=== PATIENT | male | born 1960 | race Caucasian/White ===

== ENCOUNTER 2021-09-01 19:19 | Emergency (ER) | payer OTHER, SELFPAY ==
--- NOTE | ~2021-09-01 | XR_ITS ---
EXAMINATION: X-RAY LEFT ANKLE X-RAY LEFT FOOT CLINICAL INFORMATION: Pain status post injury. COMPARISON: None TECHNIQUE: 2 images of the left ankle and 3 images of the left foot were obtained. FINDINGS: Left ankle: Soft tissue edema without evidence of acute fractures or malalignment. The ankle mortise is congruent. No unexpected radiopaque foreign bodies. Minimal vascular calcifications. Left foot: No acute fractures or malalignment. Joint spaces are preserved. No joint effusion. Small dorsal calcaneal spur and mild vascular calcifications. XR/XR ankle LT min 3V IMPRESSION: No acute fractures or malalignment.
--- NOTE | ~2021-09-01 | XR_ITS ---
EXAMINATION: X-RAY LEFT ANKLE X-RAY LEFT FOOT CLINICAL INFORMATION: Pain status post injury. COMPARISON: None TECHNIQUE: 2 images of the left ankle and 3 images of the left foot were obtained. FINDINGS: Left ankle: Soft tissue edema without evidence of acute fractures or malalignment. The ankle mortise is congruent. No unexpected radiopaque foreign bodies. Minimal vascular calcifications. Left foot: No acute fractures or malalignment. Joint spaces are preserved. No joint effusion. Small dorsal calcaneal spur and mild vascular calcifications. XR/XR foot LT min 3V IMPRESSION: No acute fractures or malalignment.
[2021-09-01 19:52] VITALS: BP 119/70; PULSE 94; RESP 16; TEMP 37.1; O2SAT 97; BMI 29.5
--- NOTE | 2021-09-01 20:25 | ED_ITS ---
HPI - Extremity Injury (Lower) General Chief Complaint: Extremity Injury, Lower Stated Complaint: ankle inj Time Seen by Provider: 09/01/21 20:25 Source: patient Mode of arrival: ambulatory History of Present Illness HPI Narrative: 61-year-old male with a past medical history of diabetes presenting to the ED complaining of left ankle/foot injury s/p twisting on stair while helping a friend move yesterday. Reports difficulty ambulating yesterday, ambulating with cane today secondary to pain/swelling. Denies injury to other area, numbness, tingling, weakness. MD complaint: ankle injury and foot injury Related Data Previous Rx's Medication Instructions Recorded acetaminophen 500 mg tablet 500 mg PO Q6H PRN #20 tab 09/01/21 (Tylenol Extra Strength) cephalexin 500 mg capsule 500 mg PO QID 7 Days #28 cap 09/01/21 naproxen 500 mg tablet 500 mg PO BID PRN 10 Days #20 tab 09/01/21 Allergies Allergy/AdvReac Type Severity Reaction Status Date / Time No Known Allergies Allergy Verified 09/01/21 19:54 Review of Systems Review of Systems: Constitutional: No Fever, No Chills ENT/Mouth: No Ear Pain, No Nasal Congestion, No sore throat= Cardiovascular: No Chest Pain, No SOB Respiratory: No Cough Gastrointestinal: No Nausea, No Vomiting, No Abdominal pain Genitourinary:No Dysuria, No Urinary Frequency Musculoskeletal: + joint pain, No Myalgias, + Joint Swelling Skin: No Skin Lesions, No rash Neuro: No Weakness, No Numbness, No Paresthesias Yes all other systems are reviewed and are negative Neurologic: Denies Sensory deficit (Neuro) [facility] Past Medical History Attestation statement: The following information was validated with the patient. Social History Social History Advance Directives: No Advance Directives Information Provided: Yes Physical Exam Vital Signs: Vital Signs: Last Vital Signs Temp 98.7 F 09/01/21 19:52 Pulse 94 09/01/21 19:52 Resp 16 09/01/21 19:52 BP 119/70 09/01/21 19:52 Pulse Ox 97 09/01/21 19:52 Body Mass Index 29.5 Const: General: cooperative, healthy appearing and no acute distress Orientation/consciousness: patient oriented x3 Limitations: no limitations HENMT: Head: Yes normal to inspection Ears: hearing grossly normal bilaterally General nose exam: Normal external nose present Face and sinus: Yes normal facial exam Eyes: General: appearance normal, both eyes and all related structures EOM: EOMs intact bilaterally Neck: Neck: Yes normal visual inspection and Yes no meningeal signs Resp: Effort & Inspection: normal respiratory effort and no respiratory distress Cardio: Rate: regular rate Peripheral pulses: dorsalis pedis present Skin: Rashes: no rashes Wounds: no wounds Neuro: General: patient oriented x3, tone normal and no meningeal signs Sensory Exam: No Sensory deficit (Neuro) Extrem: Other: Left foot and ankle with noted swelling greater to lateral aspect with overlying erythema and warmth. Tender to palpation. Decreased ROM to ankle secondary to pain. Neurovascularly intact. Sensation intact to light touch Course Course Course Narrative: XR ankle LT min 3V / XR foot LT min 3V IMPRESSION: No acute fractures or malalignment. >> patient placed in Aircast and supplied with crutches MDM - Extremity Injury (Lower) MDM Narrative Medical decision making narrative: 61-year-old male with a past medical history of diabetes presenting to the ED complaining of left ankle/foot injury s/p twisting on stair while helping a friend move yesterday. On exam vital signs stable, NAD, physical exam as above, concern for fracture versus dislocation, concern for overlying cellulitis. Low concern for septic joint/arthritis Plan: X-rays Medical Records Attestation: I reviewed the patient's medical records. Lab Data Attestation: I reviewed the patient's lab results. Discharge Plan Discharge Clinical Impression: Ankle sprain and strain, Cellulitis Patient Disposition: Home, Self-Care Instructions: Ankle Sprain (ED), R.I.C.E. Treatment (ED) Additional Instructions: You have a sprain ankle, x-ray does not show a fracture or dislocation It also appears to have an early cellulitis to your foot, Keflex as an antibiotic, please take as prescribed Wear Aircast at home as needed for comfort/debility Use crutches as needed Bear weight as tolerated Ice and elevate her foot. Naproxen as anti-inflammatory, take with food Addition take Tylenol. Please follow-up with her doctor Prescriptions: New acetaminophen [Tylenol Extra Strength] 500 mg tablet 500 mg PO Q6H PRN (Reason: pain or fever) Qty: 20 RF: 0 cephalexin 500 mg capsule 500 mg PO QID 7 Days Qty: 28 RF: 0 naproxen 500 mg tablet 500 mg PO BID PRN (Reason: pain) 10 Days Qty: 20 RF: 0 Referrals: Patricio Wong NP [Primary Care Provider] - 2 days
--- NOTE | 2021-09-01 21:07 | PC.NURSE ---
AIR CASTE WITH CRUTCHES INSTRUCTION GIVEN.
== END 2021-09-01 21:08 | disposition home or self-care (01) ==
PROVIDERS: Emergency Provider Emergency Medicine; PCP Nurse Practitioner Family
DX: S93.402A Sprain of unspecified ligament of left ankle, initial encounter (principal); S96.912A Strain of unspecified muscle and tendon at ankle and foot level, left foot, initial encounter; L03.116 Cellulitis of left lower limb; E11.9 Type 2 diabetes mellitus without complications; X50.1XXA Overexertion from prolonged static or awkward postures, initial encounter; Y93.89 Activity, other specified; Y92.9 Unspecified place or not applicable; Y99.9 Unspecified external cause status
CPT/HCPCS: 73610; 73630; 99283

== ENCOUNTER 2021-12-03 16:18 | Emergency (ER) | payer OTHER, SELFPAY ==
[2021-12-03 16:34] VITALS: BP 109/75; PULSE 98; RESP 18; TEMP 36.6; O2SAT 97; BMI 29.5
--- NOTE | 2021-12-03 18:51 | ED_ITS ---
HPI - Neck Pain/Injury General Chief Complaint: Neck Pain/Injury Stated Complaint: sharp pain left arm Time Seen by Provider: 12/03/21 18:51 Source: patient Mode of arrival: ambulatory Limitations: no limitations History of Present Illness HPI Narrative: Patient is a 61 year old male presenting to the emergency department today with left-sided neck pain and arm pain. Patient states that he has had this pain for days, and had a full workup done at [facility]. Patient states they told him there is not a cardiac event, and they referred him to a medical research associate/orthopedic provider. Patient states he was given a steroid and muscle relaxer but he does not feel like that is helping the pain enough. Patient denies any dizziness, lightheadedness, abdominal pain, nausea, vomiting, fever, chills, blurry vision, double vision, loss of vision, chest pain, difficulty breathing, shortness of breath, back pain, night sweats, pain with urination, increased urinary frequency, increased urinary urgency, blood in his urine or stool, syncope or a near syncopal episode, recent trauma or falls, bowel incontinence, bladder incontinence, bowel retention, bladder retention, or any other complaints at this time. Patient describes this pain as starting at the left side of his neck and going all the way down his left arm. MD complaint: neck pain Onset (ago): day(s) Place: home Radiation: left lateral, left shoulder and left upper extremity Severity: mild Severity scale (1-10): 3 Quality: burning Duration: intermittent Relieving factors: none Exacerbating factors: none Associated symptoms: none Related Data Previous Rx's Medication Instructions Recorded acetaminophen 500 mg tablet 500 mg PO Q6H PRN #20 tab 09/01/21 (Tylenol Extra Strength) cephalexin 500 mg capsule 500 mg PO QID 7 Days #28 cap 09/01/21 naproxen 500 mg tablet 500 mg PO BID PRN 10 Days #20 tab 09/01/21 Allergies Allergy/AdvReac Type Severity Reaction Status Date / Time No Known Allergies Allergy Verified 12/03/21 16:34 Review of Systems Verdana 4l Constitutional: Verdana 4d Verdana 4d Constitutional: Verdana 4d Reports no additional constitutional complaints, Denies chills, Denies fever(s) and Denies night sweats Verdana 4l Eyes: Verdana 4d Verdana 4d Eyes: Verdana 4d Reports no additional eye complaints, Denies blurry vision, Denies change in vision, Denies diplopia, Denies eye discharge, Denies loss of vision and Denies eye pain Verdana 4l ENT: Verdana 4d Denies dizziness and Reports neck pain (Left-sided) Verdana 4l Cardiovascular: Verdana 4d Verdana 4d Cardiovascular: Verdana 4d Reports no additional cardiovascular complaints, Denies chest pain, Denies lightheadedness, Denies Loss of Consciousness and Denies dyspnea Verdana 4l Respiratory: Verdana 4d Verdana 4d Respiratory: Verdana 4d Reports no additional respiratory complaints and Denies dyspnea Verdana 4l Gastrointestinal: Verdana 4d Verdana 4d Gastrointestinal: Verdana 4d Reports no additional gastrointestinal complaints, Denies abdominal pain, Denies melena, Denies hematochezia, Denies change in bowel habits and Denies change in stool character Verdana 4l Genitourinary: Verdana 4d Verdana 4d Genitourinary: Verdana 4d Reports no additional male genitourinary complaints, Denies hematuria, Denies oliguria, Denies difficulty urinating, Denies dysuria, Denies urinary frequency, Denies urinary hesitancy, Denies urinary incontinenceincontinence and Denies urinary urgency Musculoskeletal: Musculoskeletal: Reports no additional musculoskeletal complaints, Reports neck pain (Left-sided), Denies numbness, Reports radiating pain into limb (Left arm) and Denies tingling Neurologic: Denies dizziness, Denies loss of vision, Denies numbness and Denies tingling Psychiatric: Psychiatric: Reports no additional psychiatric complaints Endocrine: Endocrine: Reports no additional endocrine complaints Hematologic/Lymphatic: Hematologic/Lymphatic: Reports no additional hematologic/lymphatic complaints Allergic/Immunologic: Allergic/Immunologic: Reports no additional allergic/immunologic complaints PMFSH Past Medical History Attestation statement: The following information was validated with the patient. Source: old records reviewed Social History Social History Advance Directives: No Advance Directives Information Provided: No Physical Exam Verdana 4l Vital Signs: Verdana 4d Verdana 4d Vital Signs: Verdana 4d Verdana 4Bd Last Vital Signs Verdana 4d Livestock Haulier New 4d Livestock Haulier New 4d Temp 98 F 12/03/21 16:34 Livestock Haulier New 4d Pulse 98 12/03/21 16:34 Livestock Haulier New 4d Resp 18 12/03/21 16:34 BP 109/75 12/03/21 16:34 Pulse Ox 97 12/03/21 16:34 BMI result Body Mass Index 29.5 Const: General: cooperative, no acute distress, alert and awake Nutritional Appearance: well nourished Orientation/consciousness: patient oriented x3 Limitations: no limitations HENMT: Head: Yes normal to inspection and Yes atraumatic Ears: hearing grossly normal bilaterally and external ears normal General nose exam: Normal external nose present, no nasal discharge noted and no epistaxis Face and sinus: Yes normal facial exam, No abrasion and No laceration Mouth: Normal oral and palatal mucosa present, no drooling and no muffled voice Eyes: General: appearance normal, both eyes and all related structures Periorbital: periorbital findings normal Eyelids: Yes eyelids normal Conjunctivae: conjunctivae normal Pupils: Equal, round and reactive pupils present EOM: EOMs intact bilaterally Neck: Neck: Yes normal visual inspection, Yes full ROM and Yes no lymphadenopathy Chest: Chest palpation & inspection: normal inspection of the chest Resp: Effort & Inspection: normal respiratory effort and able to speak in complete sentences Auscultation: clear to auscultation bilaterally Cardio: Rate: regular rate Rhythm: regular rhythm GI: Inspection: Yes normal to inspection Neuro: General: patient oriented x3 and moves all extremities Cranial nerves: Yes Equal, round and reactive pupils present Cognition (Neuro): normal cognition Motor exam (neuro): 5/5 motor strength present throughout Sensory Exam: Normal double simultaneous stimulation for sensation Coordination: [id number] test normal Extrem: General: Yes normal to inspection, Yes full ROM and Yes capillary refill normal Psych: Appearance: grossly normal Mental Status: mental status grossly normal A ffect: normal affect Attitude: cooperative Thought process: Normal thought process present Thought content: Normal thought content present Insight: Good insight present (Psych) NIH Stroke Scale Internal: Initial- Upon Arrival Time: 18:51 Level of Consciousness: Alert Level of Consciousness Questions: Answers both questions correctly Level of Consciousness Commands: Performs both tasks correctly Best Gaze: Normal Visual: No visual loss Facial Palsy: Normal Motor Arm (Right): No drift Motor Arm (Left): No drift Motor Leg (Right): No drift Motor Leg (Left): No drift Limb Ataxia: Absent Sensory: Normal Best Language: No aphasia Dysarthia: Normal Extinction and Inattention: No abnormality Score: 0 MDM - Neck Pain/Injury MDM Narrative Medical decision making narrative: Patient is a 61 year old male presenting to the emergency department today with left-sided neck pain. Patient's physical exam was unremarkable. The description of the patient's pain, previous negative workup, and physical exam, are all consistent with left-sided cervical root radiculopathy. I explained to the patient that additional pain medication, is not warranted at this time. I explained to the patient that he would receive Toradol, IM, before discharge today. I stressed the importance of patient following up with Orthopedics, 1st thing tomorrow. I explained my physical exam findings to the patient. I answered all questions asked by the patient. I stressed the importance of the patient taking his medication as prescribed. I stressed the importance of the patient following up with his primary care provider. I stressed the importance of the patient returning to the emergency department immediately if his symptoms were to worsen or if he were to develop any dizziness, shortness of breath, difficulty breathing, chest pain, blurry vision, loss of vision, nausea, vomiting, abdominal pain, fever, chills, back pain, or any other complaints. Patient verbalized agreement and understanding with this treatment plan and discharge. Differential Diagnosis Differential diagnosis: Likely disc disorder of cervical region, cervical radiculopathy and strain of neck muscle Discharge Plan Discharge Clinical Impression: Cervical radicular pain, Strain of neck muscle Patient Disposition: Home, Self-Care Instructions: Neck Pain (ED) Prescriptions: No Action acetaminophen [Tylenol Extra Strength] 500 mg tablet 500 mg PO Q6H PRN (Reason: pain or fever) Qty: 20 0RF cephalexin 500 mg capsule 500 mg PO QID 7 Days Qty: 28 0RF naproxen 500 mg tablet 500 mg PO BID PRN (Reason: pain) 10 Days Qty: 20 0RF Referrals: Shasta Porras MD [Physician] - 2 days Patricio Wong NP [Primary Care Provider] - 2 days Interventions: ED Discharge Assessment Last Done: 12/03/21 19:52 Discharge Date/Time: 12/03/21 19:53 Print Language: Georgian
[2021-12-03] MEDS: Ketorolac Tromethamine 30 MG/ML VIAL IM (19:41)
== END 2021-12-03 19:53 | disposition home or self-care (01) ==
PROVIDERS: Emergency Provider Internal Medicine; PCP Nurse Practitioner Family
DX: S16.1XXA Strain of muscle, fascia and tendon at neck level, initial encounter (principal); M54.2 Cervicalgia; R29.700 NIHSS score 0; M79.602 Pain in left arm; X58.XXXA Exposure to other specified factors, initial encounter; Y93.9 Activity, unspecified; Y92.9 Unspecified place or not applicable; Y99.9 Unspecified external cause status; Z79.899 Other long term (current) drug therapy
CPT/HCPCS: 96372; 99284; J1885

== ENCOUNTER 2023-08-22 13:27 | Emergency (ER) | payer MEDICAID, SELFPAY ==
[2023-08-22 15:18] VITALS: BP 133/102; PULSE 107; RESP 17; TEMP 36.4; O2SAT 99
--- NOTE | 2023-08-22 15:19 | ED.NECK ---
HPI - Neck Pain/Injury General Chief Complaint: Extremity Problem Stated Complaint: neck pain down l arm Time Seen by Provider: 08/22/23 16:04 Source: patient Mode of arrival: ambulatory History of Present Illness HPI Narrative: This is a 63-year-old male who presents with pain across his left shoulder that starts at the base at the left base of his neck and radiates down the lateral aspect of his left upper extremity without dizziness/headache/chest pain/palpitations or shortness of breath. Patient states that he was seen for this same issue at [facility] recently and was placed on a course of prednisone that he states adversely affected him as he became very angry and also said that he began experiencing worsening acid reflux. Patient states he has completed the prednisone couple of days ago. Related Data Previous Rx's Medication Instructions Recorded acetaminophen 500 mg tablet 500 mg PO Q6H PRN pain or fever 09/01/21 (Tylenol Extra Strength) #20 tabs cephalexin 500 mg capsule 500 mg PO QID 7 days #28 caps 09/01/21 ketorolac 10 mg tablet 10 mg PO Q6H PRN pain 5 days #20 08/22/23 tabs Allergies Allergy/AdvReac Type Severity Reaction Status Date / Time No Known Allergies Allergy Verified 12/03/21 16:34 Review of Systems Review of Systems: Pertinent positives and negatives as stated in HPI [facility] Past Medical History Source: nursing notes reviewed Social History Social History Alcohol intake: never Smoked in Last 30 Days: No Use of substances other than those prescribed or required for medical reasons: No Advance Directives: No Advance Directives Information Provided: No Physical Exam Vital Signs: Vital Signs: Last Vital Signs Temp 96.1 F L 08/22/23 19:13 Pulse 95 08/22/23 19:13 Resp 18 08/22/23 19:13 BP 131/82 08/22/23 19:13 Pulse Ox 97 08/22/23 19:13 O2 Del Method Room Air 08/22/23 19:13 BMI result Body Mass Index 30.0 VITAL SIGNS: Reviewed. GENERAL: Well developed, well nourished, in no acute distress. HEAD: Normocephalic/atraumatic EYES: PERRLA, EOMI EARS: Ext canals without abnormality, TMs non-bulging and non-erythematous NOSE: Nares patent bilateral OROPHARYNX: no oral lesions noted, posterior pharynx clear and non-erythematous without noted tonsillar enlargement/erythema/exudates NECK: Supple, no adenopathy, no midline cervical spine tenderness to palpation or step-offs, however on palpation of left cervical paraspinal there is noted muscle firmness and tenderness that persists across the left shoulder and deltoid into the triceps region LUNGS: Normal breath sounds. No adventitious sounds or accessory muscle use. SpO2<97> CARDIOVASCULAR: Regular rate and rhythm without noted murmurs ABDOMEN: Soft, non-tender, non-distended with bowel sounds. MUSCULOSKELETAL: No tenderness, deformities, or effusions noted on gross inspection. EXTREMITIES: No cyanosis, clubbing or edema. SKIN: Inspection of the skin reveals no rashes NEUROLOGIC: Alert and oriented x 4. Strength and sensation to light touch were grossly intact x 4. Course Course Course Narrative: RME: 63-year-old male w/ past history HTN c/o L neck pain radiating down LUE described as electricity x 10 days. denies DUGGAN, CP, injury/fall. Admits went to [facility] last Saturday was given a shot and Prednisone & Flexeril w/o relief HTNsive 133/102 (took BP meds today) No midline cervical spinous ttp, +R paraspinal and tapezius muscle ttp EKG ordered Full HPI, ROS and PE to be performed by primary ED provider. Medical Decision Making Medical Decision Making MDM Narrative: 63-year-old male with history and clinical presentation, DDX: Muscle spasm, cervical radiculopathy, low clinical suspicion for any pneumonia/pneumothorax/ACS. The noted affect on patient's glucose and blood pressure is likely residual due to recent course of prednisone. I reviewed all investigations and hematologic indices negative for leukocytosis or left shift, no anemia or thrombocytopenia. Coagulation studies without elevation. Chemistry indices demonstrate a pseudohyponatremia secondary to elevated glucose level which is secondary to recent course of steroids. There is no evidence DKA or HHS. There is no demonstration of MARISELA and no electrolyte or liver enzyme abnormalities. High sensitivity troponin is undetectable. COVID-19 testing is negative. Provided patient with combination analgesics as well as lidocaine patch. He still has remaining cyclobenzaprine from his visit to [facility] and he was encouraged to take 1 of these each evening prior to bed. In addition, he was strongly encouraged to follow-up with his primary care doctor and obtain a referral for physical therapy. Differential Diagnosis Differential Diagnoses: The differential diagnosis associated with the presentation includes Please see the discussion above Admission/Observation Consideration of admission/observation: Escalation of care including admission/observation considered Please see the discussion above Lab Data MDM Lab Attestation statement: I reviewed the patient's lab results. Please see the discussion above 08/22/23 15:36 08/22/23 15:36 Labs: Lab Results 08/22/23 08/22/23 Range/Units 15:36 19:12 WBC 10.2 (4.8-10.8) X10*3/uL RBC 5.06 (4.60-5.80) X10*6/uL Hgb 16.3 (14.0-18.0) g/dl Hct 46.8 (42.0-52.0) % MCV 92.5 (80.0-98.0) fL MCH 32.2 (27.0-33.0) pg MCHC 34.8 (31.0-36.0) g/dl RDW 11.7 (11.0-16.0) % Plt Count 298 (160-400) X10*3/uL MPV 9.8 (9.4-12.4) fL Immature Gran % (Auto) 0.5 H (0.0-0.4) % Neut % (Auto) 53.6 (45-73) % Lymph % (Auto) 33.9 (20-40) % [place] % (Auto) 9.9 (2-11) % Eos % (Auto) 1.5 (0-4) % Baso % (Auto) 0.6 (0-2) % Lymph # (Auto) 3.5 (1.2-4.9) X10*3/uL [place] # (Auto) 1.0 (0.1-1.2) X10*3/uL Eos # (Auto) 0.2 (0.0-0.4) X10*3/uL Baso # (Auto) 0.1 (0.0-0.2) X10*3/uL Abs Immat Gran (auto) 0.05 H (0.00-0.03) X10*3/uL Absolute Neuts (auto) 5.5 (2.0-8.3) x10*3/uL Absolute Nucleated RBC 0.000 (0.0-0.012) X10*3/uL Nucleated RBC % (auto) 0.0 (0.0-0.2) /100WBC PT 10.1 L (11.1-13.3) SEC INR 0.8 L (0.9-1.1) Sodium 133 L (135-145) mmol/L Potassium 4.3 (3.3-5.1) mmol/L Chloride 95 L (96-108) mmol/L Carbon Dioxide 24 (22-29) mmol/L Anion Gap 18 (12-20) BUN 25 H (9-16) mg/dL Creatinine 1.27 (0.5-1.4) mg/dL Estim Creat Clear Calc 66.7 Estimated GFR 57 Random Glucose 403 H* (60-115) mg/dL Calcium 9.9 (8.4-10.2) mg/dL Total Bilirubin 0.4 (0.0-1.0) mg/dL AST 11 (5-37) U/L ALT 21 (0-40) U/L Alkaline Phosphatase 64 (39-117) U/L Troponin I High Sens < 2.7 (<3.5-35.0) ng/L Total Protein 7.9 (6.5-8.0) g/dL Albumin 4.4 (3.5-5.0) g/dL Beta-Hydroxybutyrate 0.12 (0.02-0.27) mmol/L COVID-19 (MONIQUE) Negative (Negative) COVID-19 Clin Com See Note Independent Interpretation I performed an independent interpretation of an: EKG Interpretation: Normal sinus rhythm, HR-98, no STEMI, [place]/QRS/QTC is within normal limits. Chronic Conditions Patient?s care impacted by: Diabetes and Hypertension Discharge Plan Discharge Clinical Impression: Cervical radiculopathy, Muscle spasm Patient Disposition: Home, Self-Care Instructions: Cervical Radiculopathy (ED), Muscle Spasm (ED) Additional Instructions: 1. Resume all home medications as prescribed. 2. Tylenol 1000 mg, orally, every 6 hours as needed for pain control. Do not exceed 4000 mg within 24 hours. 3. Lidocaine patch, apply to area of maximal tenderness as directed on the outside packaging. 4. Follow-up with your primary care doctor and get a referral for physical therapy. Return to the ER for any worsening symptoms. Prescriptions: New ketorolac 10 mg tablet 10 mg PO Q6H PRN (Reason: pain) 5 Days Qty: 20 0RF Rx Instructions: Pt received Toradol in the ER Discontinued naproxen 500 mg tablet 500 mg PO BID PRN (Reason: pain) 10 Days Qty: 20 0RF No Action acetaminophen [Tylenol Extra Strength] 500 mg tablet 500 mg PO Q6H PRN (Reason: pain or fever) Qty: 20 0RF cephalexin 500 mg capsule 500 mg PO QID 7 Days Qty: 28 0RF Referrals: Patricio Wong NP [Primary Care Provider] -
--- NOTE | 2023-08-22 15:20 | ECG_ITS ---
Test Reason : neck pain Blood Pressure : / mmHG Vent. Rate : 098 BPM Atrial Rate : 098 BPM P-R Int : 134 ms QRS Dur : 086 ms QT Int : 326 ms P-R-T Axes : 058 059 035 degrees QTc Int : 416 ms Normal sinus rhythm Nonspecific ST abnormality Inferior leads Lateral leads Abnormal ECG No previous ECGs available Referred By: Donna Mott Electronically Signed By:CLARKE AVILA MD
[2023-08-22 15:41] LABS: MANUAL DIFF FLAG NO
[2023-08-22 15:43] LABS: Basophils Absolute Auto 0.1 X10*3/uL (0.0-0.2); Basophils Percent Auto 0.6 % (0-2); Eosinophils Absolute Auto 0.2 X10*3/uL (0.0-0.4); Eosinophils Percent Auto 1.5 % (0-4); Hematocrit 46.8 % (42.0-52.0); Hemoglobin 16.3 g/dl (14.0-18.0); Imm Gran Abs Auto 0.05 X10*3/uL (0.00-0.03); Imm Gran Pct Auto 0.5 % (0.0-0.4); Lymphocytes Absolute Auto 3.5 X10*3/uL (1.2-4.9); Lymphocytes Percent Auto 33.9 % (20-40); Mean Corpuscular HGB Conc 34.8 g/dl (31.0-36.0); Mean Corpuscular Hemoglobin 32.2 pg (27.0-33.0); Mean Corpuscular Volume 92.5 fL (80.0-98.0); Mean Platelet Volume 9.8 fL (9.4-12.4); Monocytes Percent Auto 9.9 % (2-11); Neutrophils Absolute Auto 5.5 x10*3/uL (2.0-8.3); Neutrophils Percent Auto 53.6 % (45-73); Platelet Count 298 X10*3/uL (160-400); Red Blood Count 5.06 X10*6/uL (4.60-5.80); Red Cell Distribution Width 11.7 % (11.0-16.0); White Blood Count 10.2 X10*3/uL (4.8-10.8)
[2023-08-22 15:59] LABS: Alanine Aminotransferase 21 U/L (0-40); Albumin Level 4.4 g/dL (3.5-5.0); Alkaline Phosphatase 64 U/L (39-117); Anion Gap 18 (12-20); Aspartate Amino Transferase 11 U/L (5-37); Bilirubin Total 0.4 mg/dL (0.0-1.0); Blood Urea Nitrogen 25 mg/dL (9-16); Calcium 9.9 mg/dL (8.4-10.2); Carbon Dioxide 24 mmol/L (22-29); Chloride 95 mmol/L (96-108); Creatinine Clr Calc Pharmacy 66.7; Estimated Glomerular Filt Rate 57; Glucose Random 403 mg/dL (60-115); Potassium 4.3 mmol/L (3.3-5.1); Sodium 133 mmol/L (135-145); Total Protein 7.9 g/dL (6.5-8.0)
[2023-08-22 16:01] LABS: INTERNATIONAL NORM RATIO 0.8 (0.9-1.1); Prothrombin Time 10.1 SEC (11.1-13.3)
[2023-08-22 16:03] LABS: Troponin-I High Sensitivity < 2.7 ng/L (<3.5-35.0)
[2023-08-22 16:35] LABS: Beta-Hydroxybutyrate 0.12 mmol/L (0.02-0.27)
[2023-08-22 19:13] VITALS: BP 131/82; PULSE 95; RESP 18; TEMP 35.6; O2SAT 97
[2023-08-22 19:33] LABS: COVID-19 Test Negative (Negative); IDNOW Serial# 08D9AD1C
[2023-08-22] MEDS: Lidocaine 4 % Patch ADH..PATCH 1 PATCH TRANSDERMA (22:13)
[2023-08-22] MEDS: Ketorolac Tromethamine 15 MG/ML VIAL IM (22:13)
[2023-08-22] MEDS: Acetaminophen 325 MG TABLET 975 MG PO (22:13)
[2023-08-22 22:22] LABS: Glucose, Whole Blood 234 mg/dL (60-115)
[2023-08-22 23:09] VITALS: BP 142/84; PULSE 84; RESP 16; O2SAT 97
== END 2023-08-22 23:10 | disposition home or self-care (01) ==
PROVIDERS: Emergency Provider Student in an Organized Health Care Education/Training Program; PCP Nurse Practitioner Family
DX: M54.12 Radiculopathy, cervical region (principal); M62.838 Other muscle spasm; Z11.52 Encounter for screening for COVID-19
CPT/HCPCS: 36415; 80053; 82010; 82947; 84484; 85025; 85610; 87635; 93005; 96372; 99284; J1885

== ENCOUNTER 2025-02-25 09:56 | Emergency (ER) | payer MEDICAID, SELFPAY ==
[2025-02-25 10:02] VITALS: BP 131/73; PULSE 87; RESP 16; TEMP 36.9; BMI 28.1
--- NOTE | 2025-02-25 10:06 | ED_ITS ---
HPI - General Adult General Chief complaint: Abdominal Pain Stated complaint: Lower Abd Pain Time Seen by Provider: 02/25/25 10:06 History of Present Illness ED Provider: Antonio FRAZIER narrative: The patient is a 64-year-old male who has had pain in his right lower abdomen for about a week. He says this all started after he was pushing a heavy object. He says that the pain is worse when he moves in certain ways or changes position in certain ways. He has had no nausea, vomiting, or diarrhea. No urinary difficulty. He says that a few days ago he went to the emergency room at [facility] and had a CAT scan that did not show anything and he was told it was a muscle strain. He is having ongoing pain and came to the emergency room today. The patient has a long-term history of HIV. He also has type 2 diabetes. Related Data Previous Rx's ?Medication ?Instructions ?Recorded acetaminophen 500 mg tablet 500 mg PO Q6H PRN pain or fever 09/01/21 (Tylenol Extra Strength) #20 tabs cephalexin 500 mg capsule 500 mg PO QID 7 days #28 caps 09/01/21 ketorolac 10 mg tablet 10 mg PO Q6H PRN pain 5 days #20 08/22/23 tabs acetaminophen 500 mg capsule 1,000 mg (2 x 500 mg) PO Q8H PRN 02/25/25 fever or pain #14 caps cyclobenzaprine 10 mg tablet 10 mg PO TID PRN muscle spasm #14 02/25/25 tabs ibuprofen 400 mg tablet 400 mg PO Q6H PRN pain #14 tabs 02/25/25 Allergies Allergy/AdvReac Type Severity Reaction Status Date / Time No Known Allergies Allergy Verified 02/25/25 10:03 Review of Systems 2 Review of Systems: Yes all other systems are reviewed and are negative [facility] Social History Social History Alcohol intake: never Smoked in Last 30 Days: No Use of substances other than those prescribed or required for medical reasons: No Advance Directives: No Advance Directives Information Provided: Yes Do you have a plan to hurt others: No Plan Physical Exam ED Vital Signs: Vital Signs - 24 hr 02/25/25 10:02 02/25/25 13:30 Temperature 98.4 F 98.0 F Pulse Rate 87 88 Respiratory Rate 16 16 Blood Pressure 131/73 128/88 Pulse Oximetry 98 Oxygen Delivery Method Room Air Room Air BMI result Body Mass Index 28.1 Const Other: The patient is awake and alert. He looks remarkably healthy given his long- term history of HIV. He does not appear in acute distress but does seem to have some discomfort when he moves around or changes position. HENMT Other: Face is symmetrical. Mucous membranes moist. Eyes General: appearance normal, both eyes and all related structures Neck Neck: Yes full ROM and Yes no lymphadenopathy Resp Effort & Inspection: normal respiratory effort Auscultation: clear to auscultation bilaterally Cardio Rate: regular rate Rhythm: regular rhythm Heart sounds: S1 normal heart sound present and S2 normal heart sound present GI Other: The patient's abdomen seems soft. He seems to have an area of focal tenderness in the right lower abdomen just above the inguinal canal. This tenderness seems quite focal and quite superficial. At McBurney's point the patient does not seem to have any tenderness. Other: The patient has unremarkable external genitalia. No testicular tenderness. No scrotal fullness. Invagination of the inguinal canal did not reveal any definite sign of hernia. Skin Other: Skin is dry and unremarkable. Neuro Other: The patient is awake and alert with normal mental status. Cranial nerves 2-12 are intact. He moves extremities normally and appropriately. He seems grossly neurologically intact. Extrem Other: No peripheral edema. Medical Decision Making Medical Decision Making MDM Narrative: The patient is a 64-year-old male who is here for complaints of pain in the region of his right lower abdomen and groin. The patient describes experiencing this pain after pushing a heavy object. I believe he has some kind of strain type injury in his right groin or lower abdominal wall muscles. He has already been seen at [facility] for this pain and apparently had a negative CT scan of the abdomen and pelvis. He has no significant gastrointestinal symptoms of nausea, vomiting, or change in bowel habits. He has had no fever, sweats, chills. He seems to have abdominal wall tenderness in the right lower abdominal wall. I do not appreciate any abdominal wall hernia. Additionally I do not appreciate any definite findings of an inguinal hernia. Patient has unremarkable labs including a normal white count differential. My suspicion for an intra-abdominal process is low. Additionally does not have any findings of a small-bowel obstruction. My overall conclusion is that the patient probably has some kind of a groin muscle strain or lower abdominal wall muscle strain. He requested pain medications. He will be given prescriptions for acetaminophen, ibuprofen, and cyclobenzaprine. I am recommending that he follow up with the general surgery office for a 2nd opinion about the possible presence of an inguinal hernia or abdominal wall hernia. He was given the contact information for [facility] [place].He should also follow-up with his PCP. Lab Data 02/25/25 10:39 02/25/25 10:39 Labs: Lab Results 02/25/25 02/25/25 Range/Units 10:39 12:22 WBC 6.9 (4.8-10.8) X10*3/uL RBC 4.68 (4.60-5.80) X10*6/uL Hgb 15.4 (14.0-18.0) g/dl Hct 43.7 (42.0-52.0) % MCV 93.4 (80.0-98.0) fL MCH 32.9 (27.0-33.0) pg MCHC 35.2 (31.0-36.0) g/dl RDW 12.4 (11.0-16.0) % Plt Count 232 (160-400) X10*3/uL MPV 9.8 (9.4-12.4) fL Immature Gran % (Auto) 0.1 (0.0-0.4) % Neut % (Auto) 49.7 (45-73) % Lymph % (Auto) 38.6 (20-40) % [place] % (Auto) 8.4 (2-11) % Eos % (Auto) 2.9 (0-4) % Baso % (Auto) 0.3 (0-2) % Lymph # (Auto) 2.7 (1.2-4.9) X10*3/uL [place] # (Auto) 0.6 (0.1-1.2) X10*3/uL Eos # (Auto) 0.2 (0.0-0.4) X10*3/uL Baso # (Auto) 0.0 (0.0-0.2) X10*3/uL Abs Immat Gran (auto) 0.01 (0.00-0.03) X10*3/uL Absolute Neuts (auto) 3.4 (2.0-8.3) x10*3/uL Absolute Nucleated RBC 0.000 (0.0-0.012) X10*3/uL Nucleated RBC % (auto) 0.0 (0.0-0.2) /100WBC Sodium 136 (135-145) mmol/L Potassium 4.5 (3.3-5.1) mmol/L Chloride 106 (96-108) mmol/L Carbon Dioxide 22 (22-29) mmol/L Anion Gap 13 (12-20) BUN 23 H (9-16) mg/dL Creatinine 0.99 (0.5-1.4) mg/dL Estim Creat Clear Calc 81.9 Estimated GFR > 60 Random Glucose 175 H (60-115) mg/dL Calcium 9.4 (8.4-10.2) mg/dL Total Bilirubin 0.2 (0.0-1.0) mg/dL Direct Bilirubin < 0.2 (0.0-0.5) mg/dL AST 36 (5-37) U/L ALT 29 (0-40) U/L Alkaline Phosphatase 58 (39-117) U/L C-Reactive Protein 0.11 (< or = 0.50) mg/dL Total Protein 7.6 (6.5-8.0) g/dL Albumin 4.3 (3.5-5.0) g/dL Lipase 60 (8-78) U/L Urine Color Yellow Urine Appearance Clear Urine pH 5.5 (5.0-9.0) Ur Specific [place] 1.025 (1.005-1.025) Urine Protein Negative (Neg-Trace) mg/dL Urine Glucose (UA) >=1000 H (Negative) mg/dL Urine Ketones Negative (Negative) mg/dL Urine Blood Negative (Negative) Urine Nitrite Negative (Negative) Ur Leukocyte Esterase Negative (Negative) Urine RBC 0-2 (0-2) /HPF Urine WBC 0-5 (0-5) /HPF Ur Squamous Epith Cells 0-2 (0-2) /HPF Urine Bacteria None Seen (None Seen) Hyaline Casts 0-2 (0-2) /LPF Discharge Plan Discharge Clinical Impression: Right groin pain Patient Disposition: Home, Self-Care Additional Instructions: Your blood testing today and your urine testing are very unremarkable and reassuring. On your physical exam today I do not feel any definite findings of a hernia. Given your physical exam findings, your normal blood testing, and the fact that the CAT scan and done at [facility] a few days ago did not show any concerning process I suspect that this is all a muscle strain type injury. Nevertheless I think it would be good for you to be seen at the General surgery office to make sure they do not think you have a hernia also. Also plan on following up with your regular doctor. In the meantime I have sent prescriptions for pain control. I have sent prescriptions for acetaminophen, ibuprofen, and the muscle relaxant cyclobenzaprine. You may use these as needed as prescribed. No driving on cyclobenzaprine. It can make you drowsy. Return to the emergency room if any vomiting or fever or other new and concerning symptoms. Prescriptions: New cyclobenzaprine 10 mg tablet 10 mg PO TID PRN (Reason: muscle spasm) Qty: 14 0RF ibuprofen 400 mg tablet 400 mg PO Q6H PRN (Reason: pain) Qty: 14 0RF acetaminophen 500 mg capsule 1,000 mg PO Q8H PRN (Reason: fever or pain) Qty: 14 0RF No Action acetaminophen [Tylenol Extra Strength] 500 mg tablet 500 mg PO Q6H PRN (Reason: pain or fever) Qty: 20 0RF cephalexin 500 mg capsule 500 mg PO QID 7 Days Qty: 28 0RF ketorolac 10 mg tablet 10 mg PO Q6H PRN (Reason: pain) 5 Days Qty: 20 0RF Rx Instructions: Pt received Toradol in the ER Referrals: [facility] [place] [facility] [Provider Group] (Right groin pain, ? hernia) Tha Thornton MD [Primary Care Provider] - (right groin pain, suspect muscle strain) Interventions: ED Discharge Assessment Last Done: 02/25/25 13:30 Discharge Date/Time: 02/25/25 13:31 Print Language: Malay
[2025-02-25 10:43] LABS: MANUAL DIFF FLAG NO
[2025-02-25 10:49] LABS: Basophils Percent Auto 0.3 % (0-2); Eosinophils Absolute Auto 0.2 X10*3/uL (0.0-0.4); Eosinophils Percent Auto 2.9 % (0-4); Hematocrit 43.7 % (42.0-52.0); Hemoglobin 15.4 g/dl (14.0-18.0); Imm Gran Abs Auto 0.01 X10*3/uL (0.00-0.03); Imm Gran Pct Auto 0.1 % (0.0-0.4); Lymphocytes Absolute Auto 2.7 X10*3/uL (1.2-4.9); Lymphocytes Percent Auto 38.6 % (20-40); Mean Corpuscular HGB Conc 35.2 g/dl (31.0-36.0); Mean Corpuscular Hemoglobin 32.9 pg (27.0-33.0); Mean Corpuscular Volume 93.4 fL (80.0-98.0); Mean Platelet Volume 9.8 fL (9.4-12.4); Monocytes Absolute Auto 0.6 X10*3/uL (0.1-1.2); Monocytes Percent Auto 8.4 % (2-11); Neutrophils Absolute Auto 3.4 x10*3/uL (2.0-8.3); Neutrophils Percent Auto 49.7 % (45-73); Platelet Count 232 X10*3/uL (160-400); Red Blood Count 4.68 X10*6/uL (4.60-5.80); Red Cell Distribution Width 12.4 % (11.0-16.0); White Blood Count 6.9 X10*3/uL (4.8-10.8)
--- NOTE | 2025-02-25 10:50 | PC.NURSE ---
patient a&ox3, iv inserted labs drawn, pt c/o 06/13 rt groin pain, pt awaiting provider, call cleaning within reach, plan of care ongoing
[2025-02-25 11:00] LABS: Alanine Aminotransferase 29 U/L (0-40); Albumin Level 4.3 g/dL (3.5-5.0); Alkaline Phosphatase 58 U/L (39-117); Anion Gap 13 (12-20); Aspartate Amino Transferase 36 U/L (5-37); Bilirubin Direct < 0.2 mg/dL (0.0-0.5); Bilirubin Total 0.2 mg/dL (0.0-1.0); Blood Urea Nitrogen 23 mg/dL (9-16); C Reactive Protein 0.11 mg/dL (< or = 0.50); Calcium 9.4 mg/dL (8.4-10.2); Carbon Dioxide 22 mmol/L (22-29); Chloride 106 mmol/L (96-108); Creatinine Clr Calc Pharmacy 81.9; Estimated Glomerular Filt Rate > 60; Glucose Random 175 mg/dL (60-115); Lipase 60 U/L (8-78); Potassium 4.5 mmol/L (3.3-5.1); Sodium 136 mmol/L (135-145); Total Protein 7.6 g/dL (6.5-8.0)
--- OUTSIDE RECORDS SUMMARY | 2025-02-25 12:20 | XMS_ITS | Clinical Summary ---
Author Organization [address] [facility] Address [address] [place] [address] Phone Care Team Providers Care Billboard Poster Name Role Phone Judith, Tylor PATSY Primary Care Provider [phone]- [phone] Allergies No known active allergies Encounters Date Type Department Care Team Description 02/22/2025 11:08 PM EDT - 02/23/2025 5:27 AM EDT Emergency [facility] Emergency [address] [place] [address] Setphan Turner MD Right lower quadrant abdominal pain (Primary Dx) Discharge Disposition: Home or Self Care from Last 3 Months Immunizations Name Administration Dates Next Due Moderna SARS-CoV-2 COVID-19, mRNA, LNP-S, preservative free 10/24/2021,03/06/2021,02/04/2021 Medical History Medical History Date Comments Hypertension DX:Hypertension High cholesterol DX:High cholest ángel Diabetes mellitus (CMS/HCC V 24, CMS/HCC V28) DX:Diabetes mellitus (HCC) HIV (human immunodeficiency virus infection) (CMS/HCC V24, CMS/HCC V28) DX:HIV (human im munodeficiency virus infection) ([facility]) Social History Tobacco Use Types Packs/Day Years Used Date Smoking Tobacco: Never Smokeless Tobacco: Never Alcohol Use Standard Drinks/Week Comments Not Currently 0 (1 standard drink = 0.6 oz pur e alcohol) Sex and Gender Information Value Date Recorded Sex Assigned at Not on file Legal Sex Male 10:13 AM EST Gender Identity Not on file Sexual Orientation Not on file Obstetrics History Last Filed Vital Signs Vital Sign Reading Time Taken Comments Blood Pressure 109/89 02/23/2025 4:03 AM EDT Pulse 66 02/23/2025 4:03 AM EDT Temperature 36.8 ??C (98.2 ??F) 02/23/2025 4:03 AM ED T Respiratory Rate 16 02/23/2025 4:03 AM EDT Oxygen Saturation 95% 02/23/2025 4:03 AM EDT Inhaled Oxygen Concentration - - Weight 86.2 kg (190 lb) 02/22/2025 4:05 PM EDT Height 175.3 cm (5' 9 ) 02/22/2025 4:05 PM EDT Body Mass Index 28.06 02/22/2025 4:05 PM EDT Plan of Treatment Health Maintenance Due Date Last Done Comments Meningococcal ACWY Vaccine (1 - Risk 2-dose series) 1962 Diabetes: Annual Foot Exam 1970 Diabetes: Annual Retina Eye Exam 1970 MMR Vaccines (1 of 2 - Risk 2-dose series) 1978 Hepatitis A Vaccines (1 of 2 - Risk 2-dose series) 1979 Hepatitis B Vaccines (1 of 3 - Risk 3-dose series) 2020 Colorectal Cancer Screening: Colonoscopy 10/02/2022 Social Influencers of Health Screening 10/02/2022 Diabetes: Annual Urine Albumin-Creatinine Ratio (uACR) 09/22/2024 05/24/2022, 06/06/2020, 10/31/2018 COVID-19 Vaccine (7 - Moderna risk season) 2025 10/07/2024, 11/20/2023, 09/25/2022, Additional history exists Diabetes: Blood Sugar Control Test (HGBA1C) 05/13/2025 11/13/2024, 05/05/2024 Depression Screening 01/26/2026 01/26/2025 Diabetes: Annual GFR (Glomerular Filtration Rate) 02/22/2026 02/22/2025, 01/25/2025, 11/13/2024, Additional history exists Hypertension/CHF/CAD Annual BMP Blood Test 02/22/2026 02/22/2025, 01/25/2025, 11/13/2024, Additional history exists DTaP,Tdap,and Td Vaccines (2 - Td or Tdap) 07/16/2027 07/16/2017 Cholesterol Screening (Lipid Panel) 11/13/2029 11/13/2024, 11/13/2024, 05/05/2024, Additional history exists Zoster Vaccines Completed 03/01/2023, 08/17/2022 Pneumococcal Vaccine: 50+ Years Completed 11/20/2023, 09/25/2022 Pneumococcal Vaccine: Pediatrics (0 to 5 Years) and At-Risk Patients (6 to 64 Years) Completed 11/20/2023, 09/25/2022 Influenza Vaccine Completed 07/28/2024, , 08/03/2022, Additional history exists RSV Immunization Adult Patients Completed 10/07/2024 Hepatitis C Screening Completed 01/25/2025, 024 HIB Vaccines Aged Out No longer eligi ble based on patient's age to complete this topic HPV Vaccines Aged Out No longer eligi ble based on patient's age to complete this topic IPV Vaccines Aged Out No longer eligi ble based on patient's age to complete this topic Meningococcal B Vaccine Aged Out No l onger eligible based on patient's age to complete this topic RSV Immunization Patients Under 20 months Aged Out No longer eligible based on patient's age to complete this topic Varicella Vaccines Aged Out No longer eligible based on patient's age to complete this topic Procedures Procedure Name Priority Date/Time Associated Diagnosis Comments CT ABDOMEN PELVIS W CONTRAST STAT 02/23/2025 12:20 AM EDT EARLY URINE CULTURE TUBE STAT 02/23/20 4:38 PM EDT URINALYSIS WITH REFLEX MICROSCOPIC AND CULTURE STAT 02/22/2025 4:38 PM EDT URINALYSIS WITH REFLEX MICROSCOPIC AND CULTURE STAT 02/22/2025 4:38 PM EDT CBC WITH AUTO DIFFERENTIAL STAT 02/22/2025 4:25 PM EDT COMPREHENSIVE METABOLIC PANEL STAT 02/22/2025 4:25 PM EDT CBC AND DIFFERENTIAL STAT 02/22/2025 4:25 PM EDT CHLAMYDIA TRACHOMATIS AND NEISSERIA GONORRHOEAE PCR Routine 01/25/2025 11:02 AM EDT Human immunodeficiency virus (HIV) disease ([facility] V24, [facility] V28) AST, ALT, BILIRUBIN ELR STATE REPORTABLES Routine 01/25/2025 10:55 AM EDT Human immunodeficiency virus (HIV) disease ([facility] V24, [facility] V28) CBC WITH AUTO DIFFERENTIAL Routine 01/25/2025 10:55 AM EDT Human immunodeficiency virus (HIV) disease ([facility] V24, [facility] V28) LYMPHOCYTE T-CELL PANEL Routine 01/26/20 10:55 AM EDT Human immunodeficiency virus (HIV) disease ([facility] V24, [facility] V28) TREPONEMA PALLIDUM ANTIBODY WITH REFLEX TO RPR AND PARTICLE AGGLUTINATION Routine 01/25/2025 10:55 AM EDT Human immunodeficiency virus (HIV) disease ([facility] V24, [facility] V28) HIV 1 MOLECULAR STUDY QUANTITATIVE Routine 01/25/2025 10:55 AM EDT Human immunodeficiency virus (HIV) disease ([facility] V24, [facility] V28) HEPATITIS C ANTIBODY Routine 01/25/2025 10:55 AM EDT Human immunodeficiency virus (HIV) disease [place] [place], [facility] V28) CREATININE, SERUM Routine 01/25/2025 10:55 AM EDT Human immunodeficiency virus (HIV) disease ([facility] [place], [facility] V28) ASPARTATE AMINOTRANSFERASE Routine 01/25/2025 10:55 AM EDT Human immunodeficiency virus (HIV) disease ([facility] V24, [facility] V28) ALANINE AMINOTRANSFERASE Routine 01/25/2025 10:55 AM EDT Human immunodeficiency virus (HIV) disease (CMS/HCC V24, CMS/HCC V28) ELECTROLYTE PANEL Routine 01/25/2025 10:55 AM EDT Human immunodeficiency virus (HIV) disease (CMS/HCC V24, CMS/HCC V28) CBC AND DIFFERENTIAL Routine 01/25/2025 10:55 AM EDT Human immunodeficiency virus (HIV) disease (CMS/HCC V24, CMS/HCC V28) from Last 3 Months Results * CT Abdomen Pelvis w Contrast (02/23/2025 12:20 AM EDT) Anatomical Region Laterality Modality Body Computed Tomogra phy 02/23/2025 1:24 AM EDT Impressions 02/23/2025 1:24 AM EDT 1. No acute disease. No evidence of a bowel obstruction or free air. No pericolonic inflammation. No evidence of appendicitis. 2. Fatty liver is suspected. 3. Additional findings are detailed above. This document has been electronically signed by: Jose Calderón M.D. on 02/23/2025 01:24:03 Narrative 02/23/2025 1:24 AM EDT INDICATION: RLQ abdominal pain, appendicitis suspected (Age >= 14y) CT ABDOMEN AND PELVIS WITH CONTRAST COMPARISON: None. FINDINGS: The appendix is visualized, and there is no evidence of acute appendicitis. Moderate amount of stool is noted within portions of the colon. No pericolonic inflammation. No evidence of a bowel obstruction or free air. Predominantly dependent atelectatic/ground-glass changes are noted in the lower lungs. Fatty liver is suspected. No focal liver lesion. Gallbladder is unremarkable. No visible stone. Stomach is significantly underdistended which precludes accurate assessment. Pancreas is unremarkable. No CT evidence of acute pancreatitis. Collateral vessels are noted in the abdomen. Spleen and adrenal glands are unremarkable. Both kidneys are unremarkable. No hydronephrosis or obstructing stone. Urinary bladder is unremarkable. Prostate gland measures 5.1 x 4.4 cm on axial image 153. There is a small left fat containing inguinal hernia, and a small to moderate fat containing right inguinal hernia. There is a tiny fat containing umbilical hernia. No evidence of a bowel containing hernia. Remote mild compression deformities are noted involving the T12 and L1 vertebral body levels. Multilevel endplate degenerative changes are noted within the visualized spine. There are [id number] degenerative changes in the bilateral hips. Procedure Note Jose Calderón MD - 02/23/2025 INDICATION: RLQ abdominal pain, appendicitis suspected (Age >= 14y) [address] ABDOMEN AND PELVIS WITH CONTRAST COMPARISON: None. FINDINGS: The appendix is visualized, and there is no evidence of acute appendicitis. Moderate amount of stool is noted within portions of the colon. No pericolonic inflammation. No evidence of a bowel obstructionor free air. Predominantly dependent atelectatic/ground-glass changes are noted inthe lower lungs. Fatty liver is suspected. No focal liver lesion.Gallbladder is unremarkable. No visible stone. Stomach is significantlyunderdistended which precludes accurate assessment. Pancreas is unremarkable. No CT evidence of acute pancreatitis. Collateral vessels are noted in the abdomen. Spleen and adrenal glands are unremarkable. Both kidneys are unremarkable. No hydronephrosis or obstructing stone. Urinary bladder is unremarkable. Prostate gland measures 5.1 x 4.4 cm on axial image 153. There is a small left fat containing inguinal hernia, and a small to moderate fat containing right inguinal hernia. There is a tiny fat containing umbilical hernia. No evidence of a bowel containing hernia. Remote mild compression deformities are noted involving the T12 and L1 vertebral body levels. Multilevel endplate degenerative changes arenoted within the visualized spine. There are [id number] degenerative changes in the bilateral hips. IMPRESSION: 1. No acute disease. No evidence of a bowel obstruction or free air. No pericolonic inflammation. No evidence of appendicitis. 2. Fatty liver is suspected. 3. Additional findings are detailed above. This document has been electronically signed by: Jose Calderón M.D. on 02/23/2025 01:24:03 [facility] Barbara Turner MD IM CT PROCEDURES Final Result * (ABNORMAL) Urinalysis with reflex microscopic and culture (02/22/2025 4:38 PM EDT) Specific [place] Urine 1.013 1.003 - 1.030 LAB URINALYSIS - AUTOMATED METHOD 02/22/2025 5:14 PM EDT [facility] pH, Urine 6.0 5.0 - 8.0 pH LAB URINALYSIS - AUTOMATED METHOD 02/22/2025 5:14 PM EDT [facility] Leukocytes, Urine Negative Negative LAB URINALYSIS - AUTOMATED METHOD 02/22/2025 5:14 PM [facility] Nitrite, Urine Negative Negative LAB URINALYSIS - AUTOMATED METHOD 02/22/2025 5:14 PM EDT [facility] Protein, Urine Negative <=Trace mg/dL LAB URINALYSIS - AUTOMATED METHOD 02/22/2025 5:14 PM [facility] Glucose, Urine >=1000(A) Negative mg/dL LAB URINALYSIS - AUTOMATED METHOD 02/22/2025 5:14 PM [facility] Ketones, Urine Negative Negative mg/dL LAB URINALYSIS - AUTOMATED METHOD 02/22/2025 5:14 PM [facility] Urobilinogen , Urine 0.2 0.2 - 1.0 mg/dL LAB URINALYSIS - AUTOMATED METHOD 02/22/2025 5:14 PM [facility] Bilirubin, Urine Negative Negative LAB URINALYSIS - AUTOMATED METHOD 02/22/2025 5:14 PM [facility] Blood, Urine Negative Negative LAB URINALYSIS - AUTOMATED METHOD 02/22/2025 5:14 PM [facility] Urine Urine specimen obtained by clean catch procedure / Unknown Non-blood Collection / Unknown 02/22/2025 4:38 PM EDT 02/22/2025 4:49 PM EDT us Stephan Turner MD LAB URINE ORDERABLES Final Resu lt [facility] [address] [place] [address], * Early urine culture tube (02/22/2025 4:38 PM EDT) [facility] Extra Tube Hold for add-ons. 02/22/2025 6:02 PM EDT [facility] Comment:Auto resulted. Urine Urine specimen obtained by clean catch procedure / Unknown Non-blood Collection / Unknown 02/22/2025 4:38 PM EDT 02/22/2025 4:49 PM EDT Stephan Turner MD LAB URINE ORDERABLES Final Resu lt [facility] [address] [place] [address], [place] [phone] * CBC auto differential (02/22/2025 4:25 PM EDT) Only the most recent of2 resultswithin the time period is included. [facility] WBC 8.8 4.8 - 10.8 K/mcL LAB HEMETOLOGY METHOD 02/22/2025 4:55 PM EDT [facility] RBC 4.70 4.50 - 5.50 M/mcL LAB HEMETOLOGY METHOD 02/22/2025 4:55 PM EDT [facility] Hemoglobin 15.0 13.5 - 17.5 g/dL LAB HEMETOLOGY METHOD 02/22/2025 4:55 PM EDT [facility] Hematocrit 44.4 42.0 - 54.0 % LAB HEMETOLOGY METHOD 02/22/2025 4:55 PM EDT [facility] MCV 94.1 79.0 - 98.0 FL LAB HEMETOLOGY METHOD 02/22/2025 4:55 PM EDT [facility] MCH 31.8 27.0 - 32.0 pcg LAB HEMETOLOGY METHOD 02/22/2025 4:55 PM EDT [facility] MCHC 33.8 32.0 - 37.0 g/dL LAB HEMETOLOGY METHOD 02/22/2025 4:55 PM EDT [facility] RDW 12.2 11.0 - 15.0 % LAB HEMETOLOGY METHOD 02/22/2025 4:55 PM EDT [facility] Platelets 256 130 - 400 K/mcL LAB HEMETOLOGY METHOD 02/22/2025 4:55 PM EDT [facility] MPV 9.8 7.0 - 11.0 FL LAB HEMETOLOGY METHOD 02/22/2025 4:55 PM EDT [facility] NRBC 0.0 <1.0 % LAB HEMETOLOGY METHOD 02/22/2025 4:55 PM EDT [facility] NRBC Absolute 0.00 <0.10 K/mcL LAB HEMETOLOGY METHOD 02/22/2025 4:55 PM [facility] Neutrophils Relative 48.8 % LAB HEMETOLOGY METHOD 02/22/2025 4:55 PM EDT [facility] Lymphocytes Relative 41.3 % LAB HEMETOLOGY METHOD [facility] Monocytes Relative 7.7 % LAB HEMETOLOGY METHOD 02/22/2025 4:55 PM [facility] Eosinophils Relative 1.8 % LAB HEMETOLOGY METHOD 02/22/2025 4:55 PM EDT [facility] Basophils Relative 0.3 % LAB HEMETOLOGY METHOD 02/22[facility]2025 4:55 PM [facility] Immature Granulocytes Relative 0.1 % LAB HEMETOLOGY METHOD 02/22/2025 4:55 PM EDT [facility] Neutrophils Absolute 4.29 1.50 - 7.00 K/mcL LAB HEMETOLOGY METHOD 02/22/2025 4:55 PM EDT [facility] Lymphocytes Absolute 3.63 1.00 - 5.00 K/mcL LAB HEMETOLOGY METHOD 02/22/2025 4:55 PM EDT [facility] Monocytes Absolute 0.68 0.20 - 1.00 K/[facility] LAB HEMETOLOGY METHOD 02/22/2025 4:55 PM EDT [facility] Eosinophils Absolute 0.16 0.00 - 0.50 K/[facility] LAB HEMETOLOGY METHOD 02/22/2025 4:55 PM EDT [facility] Basophils Absolute 0.03 0.00 - 0.20 K/[facility] LAB HEMETOLOGY METHOD 02/22/2025 4:55 PM EDT [facility] Immature Granulocytes Absolute 0.01 0.00 - 0.03 K/[facility] LAB HEMETOLOGY METHOD 02/22/2025 4:55 PM EDT [facility] Blood Venous blood specimen / Unknown 02/22/2025 4:25 PM EDT 02/22/2025 4:49 PM EDT Stephan Turner MD LAB BLOOD ORDERABLES Final Resu lt [facility] [address] [place] [address], * (ABNORMAL) Comprehensive metabolic panel (02/22/2025 4:25 PM EDT) Sodium 135 133 - 145 mmol/L LAB CHEMISTRY METHOD 02/22/2025 5:34 PM EDT [facility] Potassium 4.0 3.5 - 5.5 mmol/L LAB CHEMISTRY METHOD 02/22/2025 5:34 PM [facility] Chloride 103 96 - 110 mmol/L LAB CHEMISTRY METHOD 02/22/2025 5:34 PM EDT [facility] CO2 26 21 - 32 mmol/L LAB CHEMISTRY METHOD 02/22/2025 5:34 PM EDT [facility] Anion Gap 6 3 - 11 LAB CHEMISTRY METHOD 02/22/2025 5:34 PM [facility] Glucose 129(H) 70 - 100 mg/dL LAB CHEMISTRY METHOD 02/22/2025 5:34 PM [facility] BUN 17 5 - 25 mg/dL LAB CHEMISTRY METHOD 02/22/2025 5:34 PM [facility] Creatinine 1.16 0.70 - 1.30 mg/dL LAB CHEMISTRY METHOD 02/22/2025 5:34 PM [facility] eGFR 70 >=60 mL/min/1. 73m2 LAB CHEMISTRY METHOD 02/22/2025 5:34 PM [facility] Comment:Calculation based on the??Chronic Kidney Disease Epidemiology Collaboration (CKD-EPI) equation refit??without adjustment for race. BUN/Creatinine Ratio 14.7 LAB CHEMISTRY METHOD 02/22/2025 5:34 PM [facility] Calcium 9.6 8.5 - 10.5 mg/dL LAB CHEMISTRY METHOD 02/22/2025 5:34 PM [facility] AST (SGOT) 20 10 - 42 unit/L LAB CHEMISTRY METHOD 02/22/2025 5:34 PM [facility] ALT (SGPT) 29 10 - 60 unit/L LAB CHEMISTRY METHOD 02/22/2025 5:34 PM [facility] Alkaline Phosphatase 67 42 - 121 unit/L LAB CHEMISTRY METHOD 02/22/2025 5:34 PM [facility] Total Protein 7.7 6.0 - 8.0 g/dL LAB CHEMISTRY METHOD 02/22/2025 5:34 PM [facility] Albumin 4.1 3.2 - 5.0 g/dL LAB CHEMISTRY METHOD 02/22/2025 5:34 PM [facility] Total Bilirubin 0.3 0.0 - 1.4 mg/dL LAB CHEMISTRY METHOD 02/22/2025 5:34 PM [facility] Blood Venous blood specimen / Unknown 02/22/2025 4:25 PM EDT 02/22/2025 4:49 PM EDT Stephan Turner MD LAB BLOOD ORDERABLES Final Resu lt Performing Organization Address [facility]/ZIP Co de Phone Number [facility] [address] [place] [address], [place] [phone] * Chlamydia trachomatis and Neisseria gonorrhoeae molecular study (01/25/2025 11:02 AM EDT) [facility] Neisseria gonorrhoeae PCR Negative Negative LAB MOLECULAR DIAGNOSTICS METHOD 01/25/2025 5:34 PM EDT [facility] Chlamydia trachomatis PCR Negative Negative LAB MOLECULAR DIAGNOSTICS METHOD 01/25/2025 5:34 PM EDT [facility] Swab Urine specimen from urethra / Unknown Non-blood Collection / Unknown 01/25/2025 11:02 AM EDT 01/25/2025 11:56 AM EDT Donita Vu MD LAB MICROBIOLOGY - GENERA L ORDERABLES Final Result Performing Organization Address [facility]/ZIP Co de Phone Number [facility] [address] [place] [address], [place] [phone] * (ABNORMAL) Hepatitis C antibody (01/25/2025 10:55 AM EDT) Pathologist [facility] Hepatitis C Antibody Positive (A) Negative LAB CHEMISTRY METHOD 01/25/2025 2:30 PM EDT [facility] Comment:If confirmation of t his positive HCV Ab screening test is needed, please redraw and order HCV Viral Load. Note--> This test may not be added on due to different specimen requirements. Blood Venous blood specimen / Unknown Venipuncture / Unknown 01/25/2025 10:55 AM EDT 01/25/2025 11:47 AM EDT Donita Vu MD LAB BLOOD ORDERABLES Ginger l Result Performing Organization Address City/[facility]/ZIP Co de Phone Number [facility] [address] [place] [address], [place] [phone] * AST, ALT, Bilirubin ELR state reportables (01/25/2025 10:55 AM EDT) ALT (SGPT) 35 10 - 60 unit/L LAB CHEMISTRY METHOD 01/25/2025 2:31 PM EDT [facility] AST (SGOT) 14 10 - 42 unit/L LAB CHEMISTRY METHOD 01/25/2025 2:31 PM EDT [facility] Platelets 257 K/mcL LAB HEMETOLOGY METHOD 01/25/2025 2:31 PM EDT [facility] Blood Venous blood specimen / Unknown Venipuncture / Unknown 01/25/2025 10:55 AM EDT 01/25/2025 11:47 AM EDT Donita Vu MD LAB BLOOD ORDERABLES Ginger l Result Performing Organization Address [facility] Co de Phone Number [facility] [address] [place] [address], [place] [phone] * Treponema pallidum antibody with reflex to RPR and particle agglutination (01/25/2025 10:55 AM EDT) Pathologist [facility] T. Pallidum Antibodies Negative Negative LAB CHEMISTRY METHOD 01/25/2025 2:02 PM EDT [facility] Blood Venous blood specimen / Unknown Venipuncture / Unknown 01/25/2025 10:55 AM EDT 01/25/2025 11:47 AM EDT Donita Vu MD LAB BLOOD ORDERABLES Ginger l Result Performing Organization Address City/[facility]/ZIP Co de Phone Number [facility] [address] [facility] [place] [address], [place] [phone] * (ABNORMAL) Lymphocyte T-cell panel (01/25/2025 10:55 AM EDT) [facility] CD4 804 426 - 1,776 cells/mcL 01/27/2025 10:52 AM EDT [facility] CD8 2,448(H) 161 - 838 cells/mcL 01/27/2025 10:52 AM EDT [facility] CD4/CD8 Ratio 0.33(L) 0.90 - 4.90 01/27/2025 10:52 AM EDT [facility] CD4 % 20(L) 33 - 64 % 01/27/2025 10:52 AM EDT [facility] CD8 % 61(H) 10 - 39 % 01/27/2025 10:52 AM EDT [facility] Blood Venous blood specimen / Unknown Venipuncture / Unknown 01/25/2025 10:55 AM EDT 01/25/2025 11:46 AM EDT Donita Vu MD LAB MOLECULAR DIAGNOSTICS ORDERABLES Final Result [facility] [address] [place] [address], [place] [phone] * (ABNORMAL) HIV 1 molecular study quantitative (01/25/2025 10:55 AM EDT) [facility] HIV-1 RNA Interpretation Detected (A) Not Detected LAB MOLECULAR DIAGNOSTICS METHOD 01/26/2025 3:11 PM EDT [facility] HIV-1 RNA Copies <20 <20 copies/mL LAB MOLECULAR DIAGNOSTICS METHOD 01/26/2025 3:11 PM EDT [facility] Comment:HIV RNA detected but below the limit of quantitation. Unable to report quantitative results <20 copies/mL. HIV-1 RNA Log <1.30 <1.30 Log 10 copies/mL LAB MOLECULAR DIAGNOSTICS METHOD 01/26/2025 3:11 PM EDT [facility] Blood Venous blood specimen / Unknown Venipuncture / Unknown 01/25/2025 10:55 AM EDT 01/25/2025 11:49 AM EDT Donita Vu MD LAB BLOOD ORDERABLES Ginger l Result Performing Organization Address [facility] de Phone Number [facility] [address] [place] [address], [place] [phone] * Creatinine (01/25/2025 10:55 AM EDT) Creatinine 1.04 0.70 - 1.30 mg/dL LAB CHEMISTRY METHOD 01/25/2025 1:09 PM EDT [facility] eGFR 80 >=60 mL/min/1. 73m2 LAB CHEMISTRY METHOD 01/25/2025 1:09 PM EDT [facility] Comment:Calculation based on the??Chronic Kidney Disease Epidemiology Collaboration (CKD-EPI) equation refit??without adjustment for race. Blood Venous blood specimen / Unknown Venipuncture / Unknown 01/25/2025 10:55 AM EDT 01/25/2025 11:47 AM EDT Donita Vu MD LAB BLOOD ORDERABLES Ginger l Result Performing Organization Address City/[facility]/ZIP Co de Phone Number [facility] [address] [place] [address], [place] [phone] * Alanine aminotransferase (01/25/2025 10:55 AM EDT) ALT (SGPT) 35 10 - 60 unit/L LAB CHEMISTRY METHOD 01/25/2025 1:09 PM EDT [facility] Blood Venous blood specimen / Unknown Venipuncture / Unknown 01/25/2025 10:55 AM EDT 01/25/2025 11:47 AM EDT Donita Vu MD LAB BLOOD ORDERABLES Ginger l Result [facility] [address] [place] [address], [place] [phone] * Aspartate aminotransferase (01/25/2025 10:55 AM EDT) Pathologist [facility] AST (SGOT) 14 10 - 42 unit/L LAB CHEMISTRY METHOD 01/25/2025 1:09 PM EDT [facility] Blood Venous blood specimen / Unknown Venipuncture / Unknown 01/25/2025 10:55 AM EDT 01/25/2025 11:47 AM EDT Donita Vu MD LAB BLOOD ORDERABLES Ginger l Result Performing Organization Address City/[facility]/ZIP Co de Phone Number [facility] [address] [place] [address], [place] [phone] * (ABNORMAL) Electrolyte panel (01/25/2025 10:55 AM EDT) [facility] Sodium 132(L) 133 - 145 mmol/L LAB CHEMISTRY METHOD 01/25/2025 1:09 PM EDT [facility] Potassium 4.4 3.5 - 5.5 mmol/L LAB CHEMISTRY METHOD 01/25/2025 1:09 PM EDT [facility] Chloride 102 96 - 110 mmol/L LAB CHEMISTRY METHOD 01/25/2025 1:09 PM EDT [facility] CO2 26 21 - 32 mmol/L LAB CHEMISTRY METHOD 01/25/2025 1:09 PM EDT [facility] Anion Gap 4 3 - 11 LAB CHEMISTRY METHOD 01/25/2025 1:09 PM EDT [facility] Blood Venous blood specimen / Unknown Venipuncture / Unknown 01/25/2025 10:55 AM EDT 01/25/2025 11:47 AM EDT us Donita Vu MD LAB BLOOD ORDERABLES Ginger quintana Result [facility] ([facility]) [facility] [address] [place] [address], [place] [phone] from Last 3 Months Insurance MEDICAID - [place] Care Teams Billboard Poster Relationship Specialty Start Date End Date Patricio Wong NP [address] [place] [address] PCP - General Nurse Practitioner 02/23/25
--- OUTSIDE RECORDS SUMMARY | 2025-02-25 12:21 | XMS_ITS | Encounter Summary ---
Author Organization [facility] Address [address] [place] [address] Care Team Providers Care Habilitation Worker Name Role Phone Patricio Wong NP Primary Care Provider [phone]- [phone] Reason for Visit * Reason Comments Abdominal Pain X 2 wks Encounter Details Date Type Department Care Team ([facility] st Contact Info) Description 02/22/2025 11:08 PM EDT - 02/23/2025 5:27 AM EDT Emergency [facility] Emergency [address] [place] [address] Stephan Turner MD [address] [place] [address] Right lower quadrant abdominal pain (Primary Dx) Discharge Disposition: Home or Self Care Social History Tobacco Use Types Packs/Day Years Used Date Smoking Tobacco: Never Smokeless Tobacco: Never Alcohol Use Standard Drinks/Week Comments Not Currently 0 (1 standard drink = 0.6 oz pur e alcohol) Sex and Gender Information Value Date Recorded Sex Assigned at Not on file Legal Sex Male 10:13 AM EST Gender Identity Not on file Sexual Orientation Not on file documented as of this encounter Last Filed Vital Signs Vital Sign Reading [...] Mass Index 28.06 02/22/2025 4:05 PM EDT documented in this encounter Discharge Summaries * Richi Casas RN - 02/23/2025 5:27 AM EDT Pt seen and cleared for d/c by ED provider, d/c instructions reviewed. Rx'd medication education provided, all questions answered. Pt seen ambulating out of department with ease. documented in this encounter Discharge Instructions * Discharge Instructions* Stephan Turner MD - 02/23/2025 4:48 AM EDT All of your testing today was reassuring. Your blood work shows no significant abnormalities. Your urinalysis is negative for infection. Your CT scan shows no acute abnormality. Unfortunately a causefor your pain was not identified. The serious causes for abdominal pain have been ruled out. Alternate Tylenol and ibuprofen as needed for pain relief -Take 600 mg of ibuprofen every 6 hours (do not exceed 2400 mg in 24 hrs) -Take 1000 mg of Tylenol every 6 hours (do not exceed 4000 mg in 24 hrs) -Stack these on top of each other as discussed (ie: Ibuprofen at 9 AM, Tylenol at noon, ibuprofen at 3 PM, Tylenol at 6 PM, etc) Follow up with your primary provider. Call tomorrow for an appointment. Return to Emergency Department if your symptoms worsen, don't improve, or any other concerns. Get well soon! Thank you for coming to the [facility] Emergency Department today. Our entire team works together to provide you with the best care possible. Examination and treatment you received in the emergency department has been rendered on an EMERGENCY basis only. It is not intended to be a substitute for or an effort to provide complete medical care. You should follow-up with your primary care provider. Please report to your physician any new or remaining problems, because it is impossible to recognize and treat all elements of injury or illness in a single emergency department visit. In the event that you're unable to obtain a followup appointment in a timely fashion, OR you are not getting any better, OR you are getting worse, OR you develop any symptoms of concern, please return here immediately for further evaluation. The emergency department is open 24 hours a day, 7 days aweek. Your discharge report is based on information that was available when you were in the emergency department. * Attachments The following attachments cannot be sent through Care Everywhere. * Abdominal Pain (Bolivian) documented in this encounter Discharge Disposition Disposition Code Departure Means Destination Comment s Home or Self Care documented in this encounter Progress Notes * Ruthann Patel RN - 02/22/2025 4:03 PM EDT Pt to ED for RLQ abd pain x 2 wks. Denies nausea, vomiting, or diarrhea. * Stephan Turner MD - 02/22/2025 4:02 PM EDT Emergency Medicine Note Patient Name: Julian Myers Initial Evaluation: 02/22/2025 : 1960 Patient's PCP: Patricio Wong NP Emergency Physician: Stephan Turner MD History of Present Illness Chief Complaint: Chief Complaint Patient presents with Abdominal Pain X 2 wks HPI: 64-year-old male, history of diabetes, HIV, who presents with abdominal pain. Patient states for the past 2 weeks she has been having abdominal pain, started in the periumbilical region and is now localized to the right lower quadrant. He is worried that he might have appendicitis. He is not having any fever, he has no chest pain, no shortness of breath, no nausea no vomiting no diarrhea. Heis not having any urinary symptoms. He has no other complaints except as above. ROS: I have performed a ROS with the pertinent positives and negatives documented in the history ofpresent illness. Previous History Past Medical History: Diagnosis Date Diabetes mellitus (CMS/HCC V24, CMS/HCC V28) DX:Diabetes mellitus (HCC) High cholesterol DX:High cholesterol HIV (human immunodeficiency virus infection) ([facility] V24, [facility] V28) DX:HIV (human immunodeficiency virus infection) ([facility]) Hypertension DX:Hypertension No past surgical history on file. Social History Tobacco Use Smoking status: Never Smokeless tobacco: Never Substance Use Topics Alcohol use: Not Currently Drug use: Never No family history on file. has No Known Allergies. No current facility-administered medications on file prior to encounter. No current outpatient medications on file prior to encounter. Physical Exam ED Triage Vitals [02/22/25 1605] Temp Heart Rate Resp BP 36.8 ??C (98.2 ??F) 84 18 135/73 SpO2 Temp Source Heart Rate Source Patient Position 96 % Oral Radial Sitting BP Location FiO2 (%) -- -- General: Well-appearing, well nourished, in no acute distress HEENT: PERRL, EOMI, external ears and nose appear unremarkable, airway is patent Neck: Supple, full range of motion Chest: Clear to auscultation; no evidence of respiratory distress Circulatory: RRR, extremities well perfused Abdomen: Non-distended, tender to palpation right lower quadrant, no rebound, no guarding Extremities: Normal ROM, No edema Skin: Warm and dry Neuro: Alert and oriented, no focal deficits Results Labs Reviewed COMPREHENSIVE METABOLIC PANEL - Abnormal Result Value Sodium 135 Potassium 4.0 Chloride 103 CO2 26 Anion Gap 6 Glucose 129 (*) BUN 17 Creatinine 1.16 eGFR 70 BUN/Creatinine Ratio 14.7 Calcium 9.6 AST (SGOT) 20 ALT (SGPT) 29 Alkaline Phosphatase 67 Total Protein 7.7 Albumin 4.1 Total Bilirubin 0.3 URINALYSIS WITH REFLEX MICROSCOPIC AND CULTURE - Abnormal Specific [place] Urine 1.013 pH, Urine 6.0 Leukocytes, Urine Negative Nitrite, Urine Negative Protein, Urine Negative Glucose, Urine >=1000 (*) Ketones, Urine Negative Urobilinogen, Urine 0.2 Bilirubin, Urine Negative Blood, Urine Negative CBC AND DIFFERENTIAL Narrative: The following orders were created for panel order CBC and differential. Procedure Abnormality Status --------- ------ CBC auto differential[[id number]] Final result Please view results for these tests on the individual orders. URINALYSIS WITH REFLEX MICROSCOPIC AND CULTURE Narrative: The following orders were created for panel order Urinalysis with reflex microscopic and culture. Procedure Abnormality Status --------- ------ Urinalysis with reflex ...[[id number]] Abnormal Final result Early urine culture tube[[id number]] Final result Please view results for these tests on the individual orders. CBC WITH AUTO DIFFERENTIAL WBC 8.8 RBC 4.70 Hemoglobin 15.0 Hematocrit 44.4 MCV 94.1 MCH 31.8 MCHC 33.8 RDW 12.2 Platelets 256 MPV 9.8 NRBC 0.0 NRBC Absolute 0.00 Neutrophils Relative 48.8 Lymphocytes Relative 41.3 Monocytes Relative 7.7 Eosinophils Relative 1.8 Basophils Relative 0.3 Immature Granulocytes Relative 0.1 Neutrophils Absolute 4.29 Lymphocytes Absolute 3.63 Monocytes Absolute 0.68 Eosinophils Absolute 0.16 Basophils Absolute 0.03 Immature Granulocytes Absolute 0.01 Abnormal Labs Reviewed COMPREHENSIVE METABOLIC PANEL - Abnormal; Notable for the following components: Result Value Glucose 129 (*) All other components within normal limits URINALYSIS WITH REFLEX MICROSCOPIC AND CULTURE - Abnormal; Notable for the following components: Glucose, Urine >=1000 (*) All other components within normal limits CT Abdomen Pelvis w Contrast Final Result 1. No acute disease. No evidence of a bowel obstruction or free air. No pericolonic inflammation. No evidence of appendicitis. 2. Fatty liver is suspected. 3. Additional findings are detailed above. This document has been electronically signed by: Jose Calderón M.D. on 02/23/2025 01:24:03 I have discussed the incidental/abnormal imaging and/or lab abnormalities with the patient and haveinstructed them the need for further evaluation and workup with their primary care doctor. I have provided the patient with a paper copy of the abnormality. The laboratory results, imaging results and other diagnostic exam results were reviewed in the EMR. EKG Interpretation Critical Care Time None ? Medical Decision Making Medications sodium chloride 0.9 % bolus 1,000 mL (0 mL intravenous Stopped 02/23/25310) sodium chloride 0.9 % flush 10 mL (10 mL intravenous Given 02/23/2510) iopamidoL (ISOVUE-370) 370 mg iodine /mL (76 %) injection 90 mL (90 mL intravenous Given 02/23/2510) ED Course as of 02/23/258 Tue Feb 23, 2025 0447 Blood work shows no significant abnormalities. Patient CT scan shows no acute abnormalities. Unfortunately a cause for his pain was not identified. Appendix is normal. Patient informed of results, he will be discharged home and advised to follow-up as needed. Patient understands and agrees with plan. [SM] ED Course User Index [SM] Stephan Turner MD Clinical Impressions as of 02/23/258 Right lower quadrant abdominal pain 64-year-old male, history of HIV and diabetes, presents with abdominal pain. Potential etiologies for this patient's symptoms include but not limited to appendicitis, diverticulitis, colitis, renal colic, urinary tract infection. On physical exam he has tenderness to palpation in the right lower quadrant, this places appendicitis highest on the differential at this time. Screening labs were drawnwhile he was in the waiting room, there are no significant lab abnormalities noted except for an elevated glucose in his urine. CT of the abdomen and pelvis is pending at this time to assess for intra-abdominal pathology. Procedures Procedures Diagnosis 1. Right lower quadrant abdominal pain Disposition Discharge ED Prescriptions None Physician Attestation Stephan Turner MD 02/22/25 2325 Stephan Turner MD 02/22/25 2344 Stephan Turner MD 02/23/25 0448 documented in this encounter Plan of Treatment Not on file documented as of this encounter Procedures Procedure Name Priority Date/Time Associated Diagnosis Comments CT ABDOMEN PELVIS W CONTRAST STAT 02/23/2025 12:20 AM EDT URINALYSIS WITH REFLEX MICROSCOPIC AND CULTURE STAT 02/22/2025 4:38 PM EDT EARLY URINE CULTURE TUBE STAT 02/22/2025 4:38 PM EDT URINALYSIS WITH REFLEX MICROSCOPIC AND CULTURE STAT 02/22/2025 4:38 PM EDT CBC WITH AUTO DIFFERENTIAL STAT 02/22/2025 4:25 PM EDT CBC AND DIFFERENTIAL STAT 02/22/2025 4:25 PM EDT COMPREHENSIVE METABOLIC PANEL STAT 02/22/2025 4:25 PM EDT documented in this encounter Results * CT Abdomen Pelvis w Contrast [...] noted within the visualized spine. There are [id number] degenerative changes in the bilateral hips. Procedure [...] arenoted within the visualized spine. There are [id number] degenerative changes in the bilateral hips. IMPRESSION: 1. No acute disease. No evidence of a bowel obstruction or free air. No pericolonic inflammation. No evidence of appendicitis. 2. Fatty liver is suspected. 3. Additional findings are detailed above. This document has been electronically signed by: Jose Calderón M.D. on 02/23/2025 01:24:03 Stephan Turner MD IMG CT PROCEDURES Final Result * Early urine culture tube (02/22/2025 4:38 PM EDT) Extra Tube Hold for add-ons. 02/22/2025 6:02 PM EDT [facility] Comment:Auto resulted. Urine Urine specimen obtained by clean catch procedure / Unknown Non-blood Collection / Unknown 02/22/2025 4:38 PM EDT 02/22/2025 4:49 PM EDT Stephan Turner MD LAB URINE ORDERABLES Final Resu lt [facility] [address] [place] [address], [place] [phone] * (ABNORMAL) Urinalysis with reflex microscopic and culture (02/22/2025 4:38 PM EDT) Specific [place] Urine 1.013 1.003 - 1.030 LAB URINALYSIS - AUTOMATED [facility], Urine 6.0 5.0 - 8.0 pH LAB URINALYSIS - AUTOMATED METHOD 02/22/2025 5:[address] [facility] Leukocytes, Urine Negative Negative LAB URINALYSIS - AUTOMATED METHOD 02/22/2025 5:[address] [facility] Nitrite, Urine Negative Negative LAB URINALYSIS - AUTOMATED METHOD 02/22/2025 5:[address] [facility] Protein, Urine Negative <=Trace mg/dL LAB URINALYSIS - AUTOMATED METHOD 02/22/2025 5:[address] [facility] Glucose, Urine >=1000(A) Negative mg/dL LAB URINALYSIS - AUTOMATED METHOD 02/22/2025 5:[address] [facility] Ketones, Urine Negative Negative mg/dL LAB URINALYSIS - AUTOMATED METHOD 02/22/2025 5:[address] [facility] Urobilinogen , Urine 0.2 0.2 - 1.0 mg/dL LAB URINALYSIS - AUTOMATED METHOD 02/22/2025 5:[address] [facility] Bilirubin, Urine Negative Negative LAB URINALYSIS - AUTOMATED METHOD 02/22/2025 5:[address] [facility] Blood, Urine Negative Negative LAB URINALYSIS - AUTOMATED METHOD 02/22/2025 5:[address] [facility] Urine Urine specimen obtained by clean catch procedure / Unknown Non-blood Collection / Unknown 02/22/2025 4:38 PM EDT 02/22/2025 4:49 PM EDT us Stephan Turner MD LAB URINE ORDERABLES Final Resu lt [facility] [address] [place] [address], [place] [phone] * CBC auto differential (02/22/2025 4:25 PM EDT) WBC 8.8 4.8 - 10.8 K/mcL LAB HEMETOLOGY METHOD 02/22/2025 4:55 PM EDT [facility] RBC 4.70 4.50 - 5.50 M/mcL LAB HEMETOLOGY METHOD 02/22/2025 4:55 PM EDT [facility] Hemoglobin 15.0 13.5 - 17.5 g/dL LAB HEMETOLOGY METHOD 02/22/2025 4:55 PM EDT [facility] Hematocrit 44.4 42.0 - 54.0 % LAB HEMETOLOGY METHOD 02/22/2025 4:55 PM EDT [facility] MCV 94.1 79.0 - 98.0 FL LAB HEMETOLOGY METHOD 02/22/2025 4:55 PM EDT [facility] MCH 31.8 27.0 - 32.0 pcg LAB HEMETOLOGY METHOD 02/22/2025 4:55 PM EDT [facility] MCHC 33.8 32.0 - 37.0 g/dL LAB HEMETOLOGY METHOD 02/22/2025 4:55 PM EDT [facility] RDW 12.2 11.0 - 15.0 % LAB HEMETOLOGY METHOD 02/22/2025 4:55 PM EDT [facility] Platelets 256 130 - 400 K/mcL LAB HEMETOLOGY METHOD 02/22/2025 4:55 PM EDT [facility] MPV 9.8 7.0 - 11.0 FL LAB HEMETOLOGY METHOD 02/22/2025 4:55 PM EDT [facility] NRBC 0.0 <1.0 % LAB HEMETOLOGY METHOD 02/22/2025 4:[address] [facility] NRBC Absolute 0.00 <0.10 K/mcL LAB HEMETOLOGY METHOD 02/22/2025 4:[address] [facility] Neutrophils Relative 48.8 % LAB HEMETOLOGY METHOD 02/22/2025 4:[address] [facility] Lymphocytes Relative 41.3 % LAB HEMETOLOGY METHOD 02/22/2025 4:[address] [facility] Monocytes Relative 7.7 % LAB HEMETOLOGY METHOD 02/22/2025 4:[address] [facility] Eosinophils Relative 1.8 % LAB HEMETOLOGY METHOD 02/22/2025 4:[address] [facility] Basophils Relative 0.3 % LAB HEMETOLOGY METHOD 02/22/2025 4:[address] [facility] Immature Granulocytes Relative 0.1 % LAB HEMETOLOGY METHOD 02/22/2025 4:[address] [facility] Neutrophils Absolute 4.29 1.50 - 7.00 K/mcL LAB HEMETOLOGY METHOD 02/22/2025 4:[address] [facility] Lymphocytes Absolute 3.63 1.00 - 5.00 K/mcL LAB HEMETOLOGY METHOD 02/22/2025 4:[address] [facility] Monocytes Absolute 0.68 0.20 - 1.00 K/mcL LAB HEMETOLOGY METHOD 02/22/2025 4:[address] [facility] Eosinophils Absolute 0.16 0.00 - 0.50 K/mcL LAB HEMETOLOGY METHOD 02/22/2025 4:[address] [facility] Basophils Absolute 0.03 0.00 - 0.20 K/mcL LAB HEMETOLOGY METHOD 02/22/2025 4:55 PM EDT [facility] Immature Granulocytes Absolute 0.01 0.00 - 0.03 K/mcL LAB HEMETOLOGY METHOD 02/22/2025 4:55 PM EDT [facility] Blood Venous blood specimen / Unknown 02/22/2025 4:25 PM EDT 02/22/2025 4:49 PM EDT us Stephan Turner MD LAB BLOOD ORDERABLES Final Resu lt [facility] [address] [place] [address], [place] [phone] * (ABNORMAL) Comprehensive metabolic panel (02/22/2025 4:25 PM EDT) Sodium 135 133 - 145 mmol/L LAB CHEMISTRY METHOD 02/22/2025 5:[address] [facility] Potassium 4.0 3.5 - 5.5 mmol/L LAB CHEMISTRY METHOD 02/22/2025 5:[address] [facility] Chloride 103 96 - 110 mmol/L LAB CHEMISTRY METHOD 02/22/2025 5:[address] [facility] CO2 26 21 - 32 mmol/L LAB CHEMISTRY METHOD 02/22/2025 5:[address] [facility] Anion Gap 6 3 - 11 LAB CHEMISTRY METHOD 02/22/2025 5:[address] [facility] Glucose 129(H) 70 - 100 mg/dL LAB CHEMISTRY METHOD 02/22/2025 5:[address] [facility] BUN 17 5 - 25 mg/dL LAB CHEMISTRY METHOD 02/22/2025 5:[address] [facility] Creatinine 1.16 0.70 - 1.30 mg/dL LAB CHEMISTRY METHOD 02/22/2025 5:34 PM EDT [facility] eGFR 70 >=60 mL/min/1. 73m2 LAB CHEMISTRY METHOD 02/22/2025 5:34 PM T [facility] Comment:Calculation based on the??Chronic Kidney Disease Epidemiology Collaboration (CKD-EPI) equation refit??without adjustment for race. BUN/Creatinine Ratio 14.7 LAB CHEMISTRY METHOD 02/22/2025 5:34 PM EDT [facility] Calcium 9.6 8.5 - 10.5 mg/dL LAB CHEMISTRY METHOD 02/22/2025 5:34 PM T [facility] AST (SGOT) 20 10 - 42 unit/L LAB CHEMISTRY METHOD 02/22/2025 5:[address] [facility] ALT (SGPT) 29 10 - 60 unit/L LAB CHEMISTRY METHOD 02/22/2025 5:34 PM T [facility] Alkaline Phosphatase 67 42 - 121 unit/L LAB CHEMISTRY METHOD 02/22/2025 5:[address] [facility] Total Protein 7.7 6.0 - 8.0 g/dL LAB CHEMISTRY METHOD 02/22/2025 5:[address] [facility] Albumin 4.1 3.2 - 5.0 g/dL LAB CHEMISTRY METHOD 02/22/2025 5:[address] [facility] Total Bilirubin 0.3 0.0 - 1.4 mg/dL LAB CHEMISTRY METHOD 02/22/2025 5:34 PM T [facility] Blood Venous blood specimen / Unknown 02/22/2025 4:25 PM EDT 02/22/2025 4:49 PM EDT us Stephan Turner MD LAB BLOOD ORDERABLES Final Resu lt [facility] [address] [place] [address], [place] [phone] documented in this encounter Visit Diagnoses Diagnosis Right lower quadrant abdominal pain- Primary documented in this encounter Administered Medications Inactive Administered Medications - up to 3 most recent administrations Medication Order MAR Action Action Date Dose Rate Site iopamidoL (ISOVUE-370) 370 mg iodine /mL (76 %) injection 90 mL 90 mL, intravenous, Once in imaging, Starting on Sat02/23/25 at 0010, For 1 dose Given 02/23/2025 12:11 AM EDT 90 mL sodium chloride 0.9 % bolus 1,000 mL 1,000 mL, intravenous, at 1,000 mL/hr, Administer over 1 Hours, Once, On Sat02/22/25 at 2342, For 1 dose New Bag 02/23/2025 12:02 AM EDT 1,000 mL 1000 mL/hr sodium chloride 0.9 % flush 10 mL 10 mL, intravenous, Once, On Sat02/23/25 at 0011, For 1 dose Given 02/23/2025 12:11 AM EDT 10 mL documented in this encounter Active and Recently Administered Medications Times are shown in EDT. Scheduled Medication Order 02/21/2025 02/22/2025 02/23/2025 iopamidoL (ISOVUE-370) 370 mg iodine /mL (76 %) injection 90 mL (COMPLETED) 90 mL, intravenous, Once in imaging, Starting on Sat02/23/25 at 0010, For 1 dose 0011 (Given - Provid er: Flora Chamberlain) sodium chloride 0.9 % bolus 1,000 mL (COMPLETED) 1,000 mL, intravenous, at 1,000 mL/hr, Administer over 1 Hours, Once, On Sat02/22/25 at 2342, For 1 dose 0002 (New Bag - Prov ider: Ara Eagle, RN)0311 (Stopped - Provider: Richi Casas RN) sodium chloride 0.9 % flush 10 mL (COMPLETED) 10 mL, intravenous, Once, On Sat02/23/25 at 0011, For 1 dose 0011 (Given - Provid er: Flora Chamberlain) documented in this encounter Orders IV Count Last Ordered Date First Orde red Date INSERT PERIPHERAL IV 1 02/22/2025 documented in this encounter Care Teams Habilitation Worker Relationship Specialty Start Date End Date Patricio Wong NP [address] [place] [address] PCP - General Nurse Practitioner 02/23/25 documented as of this encounter
--- OUTSIDE RECORDS SUMMARY | 2025-02-25 12:21 | XMS_ITS | Clinical Summary ---
Author Organization [facility] Address [address] [place] [address] Care Team Providers Care Field Training Manager Name Role Phone Unavailable Primary Care Provider Unavailabl e Allergies No known active allergies Medications Medication Sig Dispensed Refills Start Date End Date Status lisinopril (PRINIVIL,ZESTRIL) tablet 10 mg Take 10 mg by mouth daily. 0 Active atorvastatin (LIPITOR) tablet 40 mg Take 40 mg by mouth daily. 0 Active SITagliptin-metFORMI N (Janumet) 50-1000 MG per tablet Take 1 tablet by mouth 2 (two) times a day with meals. 0 Active Dolutegravir-lamiVUD ine 50-300 MG TABS Take 1 tablet by mouth daily. 0 Active vitamin D3 (VITAMIN D3) 25 MCG (1000 UT) tablet Take 1,000 Units by mouth daily. 0 Active Multiple Vitamin (MULTIVITAMIN ADULT PO) Take 1 tablet by mouth daily. 0 Active gabapentin (NEURONTIN) 300 MG capsule Take 1 capsule (300 mg total) by mouth 3 (three) times a day. Take 1 capsule at night for 3-5 days, then increase to 1 capsule twice a day for 3-5 days, then increase to 1 capsule three times a day if not having side effects (drowsiness, tiredness, sedation, swelling in legs) 90 capsule 0 01/02/2022 Active Social History Tobacco Use Types Packs/Day Years Used Date Smoking Tobacco: Never Smokeless Tobacco: Never Alcohol Use Standard Drinks/Week Comments Not Currently 0 (1 standard drink = 0.6 oz pur e alcohol) Sex and Gender Information Value Date Recorded Sex Assigned at Male 12/12/2021 3:41 PM EST Gender Identity Not on file Sexual Orientation Not on file Job Start Date Occupation Industry Not on file Not on file Not on file Last Filed Vital Signs Vital Sign Reading Time Taken Comments Blood Pressure 130/90 09/03/2023 1:34 PM EDT Pulse 108 09/03/2023 1:34 PM EDT Temperature 37.2 ??C (98.9 ??F) 09/03/2023 1:34 PM ED T Respiratory Rate - - Oxygen Saturation 100% 09/03/2023 1:34 PM EDT Inhaled Oxygen Concentration - - Weight 88.5 kg (195 lb) 09/03/2023 1:34 PM EDT Height 175.3 cm (5' 9 ) 09/03/2023 1:34 PM EDT Body Mass Index 28.8 09/03/2023 1:34 PM EDT Plan of Treatment Health Maintenance Due Date Last Done Comments Hepatitis C Screening 1960 Depression Screening 1972 Preventative Health Evaluation 1978 Colon Cancer Screening (Colonoscopy) 2005 COVID-19 Vaccine ( season) 2024 09/25/2022, 10/24/2021, 03/06/2021, Additional history exists Influenza Vaccine (#1) 2024 , 07/17/2021, 06/29/2020, Additional history exists Pneumococcal Vaccine (2 of 2 - PCV) 2025 09/25/2022 DTap / Tdap / Td (2 - Td or Tdap) 07/16/2027 07/16/2017 RSV Adult > 60+ Yrs or (1 - 1-dose 75+ series) 2035 Pneumococcal Vaccine Aged Out 09/25/2022 No long er eligible based on patient's age to complete this topic Shingrix-Zoster Vaccine Completed 03/01/2023, 08/17 Hepatitis B Vaccines Aged Out No long er eligible based on patient's age to complete this topic RSV Ped < 20 months Aged Out No longe r eligible based on patient's age to complete this topic Julian Myers Personal/Family Self 1960 [place] [address]
[2025-02-25 12:29] LABS: Appearance Urine Clear; Color Urine Yellow; Glucose Urine UA >=1000 mg/dL (Negative); Leukocyte Esterase Urine Negative (Negative); Nitrite Urine Negative (Negative); PH 5.5 (5.0-9.0); Specific Gravity - Urine 1.025 (1.005-1.025); UMIC TRIGGER UACC YES; Urine Blood Negative (Negative); Urine Ketones Negative (Negative); Urine Protein Negative (Neg-Trace)
[2025-02-25 12:32] LABS: Bacteria Urine None Seen (None Seen); Hyaline Casts Urine 0-2 /LPF (0-2); RBC Urine 0-2 /HPF (0-2); Squamous Epithelial Cell Urine 0-2 /HPF (0-2); WBC Urine 0-5 /HPF (0-5)
[2025-02-25 13:30] VITALS: BP 128/88; PULSE 88; RESP 16; TEMP 36.7; O2SAT 98
== END 2025-02-25 13:31 | disposition home or self-care (01) ==
PROVIDERS: Emergency Provider Emergency Medicine; PCP Internal Medicine
DX: R10.31 Right lower quadrant pain (principal); B20 Human immunodeficiency virus [HIV] disease; E11.9 Type 2 diabetes mellitus without complications
CPT/HCPCS: 36415; 80048; 80076; 81001; 83690; 85025; 86140; 99283; 99284